=== PATIENT | female | born 1970 | race Caucasian/White ===

== ENCOUNTER 2016-06-21 04:03 | Emergency (ER) | payer MEDICAID ==
[2016-06-21 04:24] VITALS: PULSE 81; RESP 18; TEMP 98.6
[2016-06-21 04:46] LABS: % IMMATURE GRANULYOCYTES 0.6 % (0.0-1.1); ABSOLUTE IMMATURE GRANULOCYTES 0.04 10^3/uL (0.00-0.10); ADD DIFF? NO; ADD MORPH? NO; ADD SCAN? NO; ATYPICAL LYMPHOCYTE FLAG 0 (0-99); FRAGMENT RBC FLAG 0 (0-99); HEMATOCRIT 43.5 % (38.0-47.0); HEMOGLOBIN 13.9 g/dL (12.6-16.3); LEFT SHIFT FLG 0 (0-99); LIPEMIA HEMOLYSIS FLAG 80 (0-99); MEAN CELL HEMOGLOBIN 27.1 pg (27.9-34.1); MEAN CELL VOLUME 84.8 fL (81.5-99.8); MEAN PLATELET VOLUME 10.9 fL (8.7-11.7); PLATELET CLUMPS FLAG 10 (0-99); PLATELET COUNT 183 10^3/uL (150-400); RED BLOOD CELL COUNT 5.13 10^6/uL (4.18-5.33); RED CELL DISTRIBUTION WIDTH 13.7 % (11.5-15.2)
[2016-06-21 04:57] LABS: ANION GAP 9 mEq/L (8-16); CALCIUM 9.3 mg/dL (8.5-10.4); CARBON DIOXIDE 25 mEq/l (22-31); CHLORIDE 107 mEq/L (97-110); CREATININE 0.9 mg/dL (0.6-1.0); GLOMERULAR FILTRATION RATE > 60; GLUCOSE 119 mg/dL (70-100); POTASSIUM 4.1 mEq/L (3.5-5.2); SODIUM 141 mEq/L (134-144)
[2016-06-21 04:59] LABS: COLOR YELLOW; LEUKOCYTE ESTERASE,URINE NEGATIVE (NEGATIVE); NITRITE,URINE NEGATIVE (NEGATIVE)
[2016-06-21 05:04] LABS: BACTERIA 2+ /hpf (NONE SEEN); MUCUS TRACE /lpf (NONE-1+); RBC,URINE 50-182 /hpf (0-3)
[2016-06-21] MEDS ORDERED: KETOROLAC 15 MG/1 ML SDV ONE (05:35)
[2016-06-21] MEDS ORDERED: KETOROLAC 15 MG/1 ML SDV IVP ONE (05:38)
[2016-06-21] MEDS ORDERED: NS 1,000 ML IV ONE (05:38)
--- NOTE | 2016-06-21 05:48 | EDPHY ---
H & P Stated Complaint: R FLANK PAIN, CRAMPING, DIARRHEA AND VOMITING Time Seen by Provider: 06/21/16 04:20 HPI/ROS: Chief Complaint: Right flank pain, nausea vomiting HPI: 45-year-old woman with no significant medical history woke this morning when this morning with right-sided flank pain. Patient has vomited twice. Pain was at to a 7 to 8/10. Does not have a history of the same. Last menstrual period was a week ago was normal. She does not believe she is . No fevers or chills. No diarrhea or constipation. Patient states that the pain is significantly better now. ROS: 10 point Review of Systems is negative except as noted in the HPI. PMH: Past medical history is none Medications: None Allergies: No known drug allergies Social History: No smoking, no alcohol, no recreational drug use Family History: non-contributory Physical Exam: Gen: Awake, Alert, No Distress HEENT: Nose: no rhinorrhea Eyes: PERRLA, EOMI Mouth: Moist mucosa Neck: Supple, no JVD Chest: nontender, lungs clear to auscultation Heart: S1, S2 normal, no murmur Abd: Soft, non-tender, no guarding Back: no CVA tenderness, no midline tenderness Ext: no edema, non-tender Skin: no rash Neuro: CN II-XII intact, Sensation grossly intact, Strength 5/5 in bilateral upper and lower extremities - Personal History Current Tetanus/Diphtheria Vaccine: Yes Current Tetanus Diphtheria and Acellular Pertussis (TDAP): Yes - Medical/Surgical History Hx Asthma: Yes Hx Chronic Respiratory Disease: No Hx Diabetes: No Hx Cardiac Disease: No Hx Renal Disease: No Hx Cirrhosis: No Hx Alcoholism: No Hx HIV/AIDS: No Hx Splenectomy or Spleen Trauma: No Other PMH: DENIES - Social History Smoking Status: Never smoked Constitutional: Initial Vital Signs Temperature (C) 37.0 C 06/21/16 04:15 Heart Rate 81 06/21/16 04:15 Respiratory Rate 18 06/21/16 04:15 Blood Pressure 160/105 H 06/21/16 04:15 O2 Sat (%) 96 06/21/16 04:15 O2 Delivery Mode Room Air Allergies/Adverse Reactions: No Known Allergies Allergy (Unverified 06/21/16 04:24) Home Medications: Medication Instructions Recorded Albuterol Hfa Anes Only [Proair 2 puffs IH QID 06/21/16 Hfa Icu (*)] Hydrocodone/Acetaminophen 1 - 2 each PO Q4-6PRN PRN #10 06/21/16 [Hydrocodon-Acetaminophen 5-325] tablet Medical Decision Making - Diagnostics Imaging: CT abdomen pelvis, noncontrast shows a 4 mm right distal ureteral stone just proximal to the UVJ with moderate hydronephrosis. Interpreted by Dr. Aquino. ED Course/Re-evaluation: Urinalysis has 3+ blood. Remainder of her blood work is unremarkable. Will obtain CT scan to evaluate for kidney stone. CT scan results are noted. 4 mm distal ureteral stone just proximal to the UVJ. Patient states her pain is starting to come back. Will give her Toradol here. I have explained to her the process of passing kidney stone. She will follow up with primary care physician in 3-4 days. Will send her home with a prescription for hydrocodone but I have told her that ibuprofen will be the best medicine to control her pain. - Data Points Laboratory Results: Laboratory Results 06/21/16 04:35 06/21/16 04:35 06/21/16 06/21/16 06/21/16 04:35 04:35 04:35 WBC RBC Hgb Hct MCV MCH MCHC RDW Plt Count MPV Neut % (Auto) Lymph % (Auto) [place] % (Auto) Eos % (Auto) Baso % (Auto) Nucleat RBC Rel Count Absolute Neuts (auto) Absolute Lymphs (auto) Absolute Monos (auto) Absolute Eos (auto) Absolute Basos (auto) Absolute Nucleated RBC Immature Gran % Immature Gran # Sodium 141 mEq/L mEq/L (134-144) Potassium 4.1 mEq/L mEq/L (3.5-5.2) Chloride 107 mEq/L mEq/L (97-110) Carbon Dioxide 25 mEq/l mEq/l (22-31) Anion Gap 9 mEq/L mEq/L (8-16) BUN 14 mg/dL mg/dL (7-23) Creatinine 0.9 mg/dL mg/dL (0.6-1.0) Estimated GFR > 60 Glucose 119 mg/dL H mg/dL (70-100) Calcium 9.3 mg/dL mg/dL (8.5-10.4) Beta HCG, Qual NEGATIVE Urine Color YELLOW Urine Appearance CLEAR Urine pH 7.0 (5.0-7.5) Ur Specific [place] 1.012 (1.002-1.030) Urine Protein NEGATIVE (NEGATIVE) Urine Ketones NEGATIVE (NEGATIVE) Urine Blood 3+ H (NEGATIVE) Urine Nitrate NEGATIVE (NEGATIVE) Urine Bilirubin NEGATIVE (NEGATIVE) Urine Urobilinogen NEGATIVE EU EU (0.2-1.0) Ur Leukocyte Esterase NEGATIVE (NEGATIVE) Urine RBC 50-182 /hpf H /hpf (0-3) Urine WBC 1-3 /hpf /hpf (0-3) Ur Epithelial Cells TRACE /lpf /lpf (NONE-1+) Urine Bacteria 2+ /hpf H /hpf (NONE SEEN) Hyaline Casts 1-5 /lpf /lpf (0-1) Urine Mucus TRACE /lpf /lpf (NONE-1+) Urine Glucose NEGATIVE (NEGATIVE) 06/21/16 04:35 WBC 7.20 10^3/uL 10^3/uL (3.80-9.50) RBC 5.13 10^6/uL 10^6/uL (4.18-5.33) Hgb 13.9 g/dL g/dL (12.6-16.3) Hct 43.5 % % (38.0-47.0) MCV 84.8 fL fL (81.5-99.8) MCH 27.1 pg L pg (27.9-34.1) MCHC 32.0 g/dL L g/dL (32.4-36.7) RDW 13.7 % % (11.5-15.2) Plt Count 183 10^3/uL 10^3/uL (150-400) MPV 10.9 fL fL (8.7-11.7) Neut % (Auto) 67.0 % % (39.3-74.2) Lymph % (Auto) 24.6 % % (15.0-45.0) Ul[place] % (Auto) 5.6 % % (4.5-13.0) Eos % (Auto) 1.5 % % (0.6-7.6) Baso % (Auto) 0.7 % % (0.3-1.7) Nucleat RBC Rel Count 0.0 % % (0.0-0.2) Absolute Neuts (auto) 4.83 10^3/uL 10^3/uL (1.70-6.50) Absolute Lymphs (auto) 1.77 10^3/uL 10^3/uL (1.00-3.00) Absolute Monos (auto) 0.40 10^3/uL 10^3/uL (0.30-0.80) Absolute Eos (auto) 0.11 10^3/uL 10^3/uL (0.03-0.40) Absolute Basos (auto) 0.05 10^3/uL 10^3/uL (0.02-0.10) Absolute Nucleated RBC 0.00 10^3/uL 10^3/uL (0-0.01) Immature Gran % 0.6 % % (0.0-1.1) Immature Gran # 0.04 10^3/uL 10^3/uL (0.00-0.10) Sodium Potassium Chloride Carbon Dioxide Anion Gap BUN Creatinine Estimated GFR Glucose Calcium Beta HCG, Qual Urine Color Urine Appearance Urine pH Ur Specific [place] Urine Protein Urine Ketones Urine Blood Urine Nitrate Urine Bilirubin Urine Urobilinogen Ur Leukocyte Esterase Urine RBC Urine WBC Ur Epithelial Cells Urine Bacteria Hyaline Casts Urine Mucus Urine Glucose Medications Given: Discontinued Medications Sodium Chloride (Ns) 1,000 mls @ 0 mls/hr IV ONCE ONE PRN Reason: Wide Open Stop: 06/21/16 05:39 Last Admin: 06/21/16 05:40 Dose: 1,000 mls Ketorolac Tromethamine (Toradol) 15 mg IVP EDNOW ONE Stop: 06/21/16 05:39 Last Admin: 06/21/16 05:39 Dose: 15 mg Departure - Departure Disposition: Home, Routine, Self-Care Clinical Impression: Kidney stone Condition: Good Instructions: Kidney Stones (ED) Additional Instructions: You may take ibuprofen every 4 hours as needed for pain. If the ibuprofen is not control the pain take hydrocodone with acetaminophen. Follow up with primary care physician in 2-3 days. He has also been given the name of urologist to follow up if her symptoms do not improve. Referrals: [facility] [Other] - As per Instructions Edison Goldman MD [Medical Doctor] - As per Instructions Prescriptions: Hydrocodone/Acetaminophen [Hydrocodon-Acetaminophen 5-325] 1 - 2 each PO Q4- 6PRN PRN #10 tablet PRN Reason: Pain, Severe
[2016-06-21] MEDS ORDERED: HYDROCOD/APAP 5/325 PREPACK#6 BTL TAKEHOME ONE (06:27)
[2016-06-21 06:44] VITALS: BP 117/75; O2SAT 94
== END 2016-06-21 06:43 | disposition home or self-care (01) ==
DX: N20.0 Calculus of kidney (principal); J45.909 Unspecified asthma, uncomplicated
CPT/HCPCS: 96374; J1885

== ENCOUNTER 2016-06-23 08:15 | Emergency (ER) | payer MEDICAID ==
[2016-06-23 08:32] VITALS: O2SAT 97
[2016-06-23] MEDS ORDERED: NS 1,000 ML IV ONE (08:51)
[2016-06-23] MEDS ORDERED: ONDANSETRON 4 MG/2 ML VIAL IVP ONE (08:59)
[2016-06-23] MEDS ORDERED: HYDROmorphONE/DILAUDID 1 MG/ML SYR IVP ONE (08:59)
[2016-06-23] MEDS ORDERED: KETOROLAC 30 MG/1 ML SDV IVP ONE (08:59)
[2016-06-23 09:06] LABS: % IMMATURE GRANULYOCYTES 0.5 % (0.0-1.1); ABSOLUTE IMMATURE GRANULOCYTES 0.05 10^3/uL (0.00-0.10); ADD DIFF? NO; ADD MORPH? NO; ADD SCAN? NO; ATYPICAL LYMPHOCYTE FLAG 0 (0-99); FRAGMENT RBC FLAG 0 (0-99); HEMATOCRIT 44.5 % (38.0-47.0); HEMOGLOBIN 14.5 g/dL (12.6-16.3); LEFT SHIFT FLG 0 (0-99); LIPEMIA HEMOLYSIS FLAG 80 (0-99); MEAN CELL HEMOGLOBIN 27.3 pg (27.9-34.1); MEAN CELL HEMOGLOBIN CONCENTR. 32.6 g/dL (32.4-36.7); MEAN CELL VOLUME 83.8 fL (81.5-99.8); MEAN PLATELET VOLUME 11.4 fL (8.7-11.7); PLATELET CLUMPS FLAG 10 (0-99); PLATELET COUNT 193 10^3/uL (150-400); RED BLOOD CELL COUNT 5.31 10^6/uL (4.18-5.33); RED CELL DISTRIBUTION WIDTH 13.9 % (11.5-15.2)
--- NOTE | 2016-06-23 09:16 | EDPHY ---
H & P Stated Complaint: diagnossed with kidney stone 06/21 increased pain and vomiting Time Seen by Provider: 06/23/16 08:47 HPI/ROS: CHIEF COMPLAINT: Vomiting, flank pain HISTORY OF PRESENT ILLNESS: The patient is a 45-year-old female who is diagnosed here 3 days ago with a kidney stone. CT scan was done that showed a 4 mm stone at the right UVJ. Patient was discharged with Vicodin and ibuprofen and Zofran. She states that she has been having a difficult time staying hydrated because of nausea. Also the Vicodin made her feel dry. REVIEW OF SYSTEMS: Constitutional: denies: chills, fever, recent illness, recent injury EENTM: denies: blurred vision, double vision, nose congestion Respiratory: denies: cough, shortness of breath Cardiac: denies: chest pain, irregular heart rate, lightheadedness, palpitations Gastrointestinal/Abdominal: denies: abdominal pain, diarrhea, nausea, vomiting, blood streaked stools Genitourinary: denies: dysuria, frequency, hematuria, pain Musculoskeletal: denies: joint pain, muscle pain Skin: denies: lesions, rash, jaundice, bruising Neurological: denies: headache, numbness, paresthesia, tingling, dizziness, weakness Hematologic/Lymphatic: denies: blood clots, easy bleeding, easy bruising Immunologic/allergic: denies: HIV/AIDS, transplant EXAM: GENERAL: Well-appearing, well-nourished and in no acute distress. HEAD: Atraumatic, normocephalic. EYES: Pupils equal round and reactive to light, extraocular movements intact, sclera anicteric, conjunctiva are normal. ENT: TMs normal, nares patent, oropharynx clear without exudates. Moist mucous membranes. NECK: Normal range of motion, supple without lymphadenopathy or JVD. LUNGS: Breath sounds clear to auscultation bilaterally and equal. No wheezes rales or rhonchi. HEART: Regular rate and rhythm without murmurs, rubs or gallops. ABDOMEN: Soft, nontender, normoactive bowel sounds. No guarding, no rebound. No masses appreciated. BACK: No CVA tenderness, no spinal tenderness, step-offs or deformities EXTREMITIES: Normal range of motion, no pitting or edema. No clubbing or cyanosis. NEUROLOGICAL: Cranial nerves II through XII grossly intact. Normal speech, normal gait. 5/5 strength, normal movement in all extremities, normal sensation PSYCH: Normal mood, normal affect. SKIN: Warm, dry, normal turgor, no visible rashes or lesions. Source: Patient Exam Limitations: No limitations - Personal History LMP (Females 10-55): 1-7 Days Ago Current Tetanus Diphtheria and Acellular Pertussis (TDAP): Yes - Medical/Surgical History Hx Asthma: Yes Hx Chronic Respiratory Disease: No Hx Diabetes: No Hx Cardiac Disease: No Hx Renal Disease: No Hx Cirrhosis: No Hx Alcoholism: No Hx HIV/AIDS: No Hx Splenectomy or Spleen Trauma: No Other PMH: DENIES - Family History Significant Family History: No pertinent family hx - Social History Smoking Status: Never smoked Alcohol Use: Sober Drug Use: None Constitutional: Initial Vital Signs Temperature (C) 37.3 C 06/23/16 08:28 Heart Rate 77 06/23/16 08:28 Respiratory Rate 16 06/23/16 08:28 Blood Pressure 166/94 H 06/23/16 08:28 O2 Sat (%) 97 06/23/16 08:28 O2 Delivery Mode Room Air Allergies/Adverse Reactions: No Known Allergies Allergy (Unverified 06/21/16 04:24) Home Medications: Medication Instructions Recorded Albuterol Hfa Anes Only [Proair 2 puffs IH QID 06/21/16 Hfa Icu (*)] Hydrocodone/Acetaminophen 1 - 2 each PO Q4-6PRN PRN #10 06/21/16 [Hydrocodon-Acetaminophen 5-325] tablet Ketorolac Tromethamine [Toradol] 10 mg PO Q6H #16 tab 06/23/16 Ondansetron Odt [Zofran Odt 4 mg 4 mg PO Q4 PRN #20 tab 06/23/16 (RX)] Tamsulosin HCl [Flomax] 0.4 mg PO DAILY #10 cap 06/23/16 Medical Decision Making ED Course/Re-evaluation: 9:45 a.m. the patient is feeling much better. She feels slightly lightheaded after receiving Dilaudid. We will continue to hydrate and observed. She would like a prescription for ketorolac but does not wish to have more narcotics. Differential Diagnosis: Partial list of the Differential diagnosis considered include but were not limited to; kidney stone, pyelonephritis, rupture, renal insufficiency and although unlikely based on the history and physical exam, I also considered aneurysm, dissection, appendicitis, ovarian torsion, ovarian cyst, PID. I discussed these differential diagnoses and the plan with the patient as well as the usual and expected course. The patient understands that the diagnosis is provisional and that in medicine we are not always correct and that further workup is often warranted. Usual and customary warnings were given. All of the patient's questions were answered. The patient was instructed to return to the emergency department should the symptoms at all worsen or return, otherwise to followup with the physician as we discussed. - Data Points Laboratory Results: Laboratory Results 06/23/16 08:40 06/23/16 08:40 Medications Given: Discontinued Medications Hydromorphone HCl (Dilaudid) 0.5 mg IVP EDNOW ONE Stop: 06/23/16 09:00 Last Admin: 06/23/16 09:30 Dose: 0.5 mg Sodium Chloride (Ns) 1,000 mls @ 0 mls/hr IV ONCE ONE PRN Reason: Wide Open Stop: 06/23/16 08:52 Last Admin: 06/23/16 08:52 Dose: 1,000 mls Ketorolac Tromethamine (Toradol) 30 mg IVP EDNOW ONE Stop: 06/23/16 09:00 Last Admin: 06/23/16 09:15 Dose: 30 mg Ondansetron HCl (Zofran) 8 mg IVP EDNOW ONE Stop: 06/23/16 09:00 Last Admin: 06/23/16 09:15 Dose: 8 mg Departure - Departure Disposition: Home, Routine, Self-Care Clinical Impression: Calculus of left kidney Condition: Fair Instructions: Kidney Stones (ED), Renal Colic (ED) Referrals: [facility] [Other] - As per Instructions Prescriptions: Ketorolac Tromethamine [Toradol] 10 mg PO Q6H #16 tab Ondansetron Odt [Zofran Odt 4 mg (RX)] 4 mg PO Q4 PRN #20 tab PRN Reason: Nausea & Vomiting Tamsulosin HCl [Flomax] 0.4 mg PO DAILY #10 cap
[2016-06-23 09:27] LABS: ANION GAP 11 mEq/L (8-16); CALCIUM 9.3 mg/dL (8.5-10.4); CARBON DIOXIDE 24 mEq/l (22-31); CHLORIDE 105 mEq/L (97-110); CREATININE 0.8 mg/dL (0.6-1.0); GLOMERULAR FILTRATION RATE > 60; GLUCOSE 96 mg/dL (70-100); POTASSIUM 4.5 mEq/L (3.5-5.2); SODIUM 140 mEq/L (134-144)
[2016-06-23 10:58] VITALS: BP 125/64; PULSE 80; RESP 18; TEMP 98.1
== END 2016-06-23 10:56 | disposition home or self-care (01) ==
DX: N20.0 Calculus of kidney (principal); J45.909 Unspecified asthma, uncomplicated
CPT/HCPCS: 96374; J1170; J1885; J2405

== ENCOUNTER → 2017-02-13 | Outpatient (CLI) | payer MEDICAID | LOC: FIMAGING 12:12 | PROVIDERS: ATTEND Physician Assistant Medical | DX: Z12.31 Encounter for screening mammogram for malignant neoplasm of breast (principal) | CPT/HCPCS: G0202 ==

== ENCOUNTER 2017-12-04 12:54 | Emergency (ER) | payer MEDICAID ==
[2017-12-04 12:59] VITALS: BP 140/100
--- NOTE | 2017-12-04 15:00 | EDPHY ---
H & P Smoking Status: Never smoked Time Seen by Provider: 12/04/17 14:48 HPI/ROS: CHIEF COMPLAINT: Continued left 5th toe pain HISTORY OF PRESENT ILLNESS: 47-year-old female sustained a fracture left 5th toe 09/09/2017, [facility], was given a referral to processing operator to occur this upcoming Thursday (today is Thursday), had an x-ray performed [facility], in the ER because she is concerned that her insurance may run out before she is able to follow up with the processing operator. Denies acute complaints. She has continued pain left 5th toe. No discoloration. She is in the ER wondering if she could see a processing operator from the emergency department. PHYSICAL EXAM (Prior to examination, patient consented to physical exam, hands were washed and my usual and customary physical exam procedures followed) 1) GENERAL: Well-developed, well-nourished, alert and oriented. Appears to be in no acute distress. 2) HEAD: Normocephalic 3) HEENT: sclera anicteric 4) LUNGS: Breathing comfortably. 5) SKIN: Intact. No ecchymosis. No discoloration. 6) MUSCULOSKELETAL: No tenderness to palpation of the toe or foot. DP PT pulses present and brisk. 7) NEUROLOGIC: Full sensation (Jigar,D Tresa) Constitutional: Initial Vital Signs Temperature (C) 36.5 C 12/04/17 12:57 Heart Rate 91 12/04/17 12:57 Respiratory Rate 16 12/04/17 12:57 Blood Pressure 140/100 H 12/04/17 12:57 O2 Sat (%) 97 12/04/17 12:57 O2 Delivery Mode Room Air Allergies/Adverse Reactions: No Known Allergies Allergy (Unverified 06/21/16 04:24) Home Medications: Medication Instructions Recorded NK [No Known Home Meds] 12/04/17 MDM/Departure - MDM ED Course/Re-evaluation: I reviewed the patient's medical records including her x-ray results/radiology report from today showing an "incomplete healing of 5th proximal family in phalangeal fracture". Patient is neurovascular intact. She has no evidence of overlying skin infection. I empathized with her situation. At this time I do not think that emergent podiatry consultation is indicated. She already has a postoperative shoe and I recommend she continue wearing this and recommend she follow up with her already given podiatry referral for this upcoming Thursday ( today is Thursday). I saw this patient independently based on established practice protocols. Care of patient under supervision of secondary supervising physician Dr Jason Obrien . ([facility],D Tresa) I did not see this patient while she was in the emergency department. However her care was discussed with the PA while the patient was in the department. I agree with treatment plan and management (Jason Obrien S) - Depart Disposition: Home, Routine, Self-Care Clinical Impression: Fracture of fifth toe, left, closed Qualifiers: Encounter type: initial encounter Qualified Code(s): S92.502A - Displaced unspecified fracture of left lesser toe(s), initial encounter for closed fracture Condition: Good Instructions: Toe Fracture (ED) Additional Instructions: Please keep your appointment with your processing operator this upcoming Thursday Referrals: Lanie Shore PA [Primary Care Provider] - 12/09/17 Lui Gonsalez DPM [Doctor of Podiatric Medicine] - 2-3 days, call for appt.
== END 2017-12-04 15:10 | disposition home or self-care (01) ==
DX: S92.502G Displaced unspecified fracture of left lesser toe(s), subsequent encounter for fracture with delayed healing (principal)